=== PATIENT | male | born 1960 | race African-American/Black ===

== ENCOUNTER 2019-01-07 20:35 | Inpatient (IN) | payer OTHER ==
[~2019-01-07] VITALS: Ht 175.3 cm; Wt 96.3 kg
[~2019-01-07 20:35] MED LIST: ALTACE10 MG PO; BAYER CHEWABLE81 MG PO; CHLORTHALIDONE25 MG PO; FISH OIL 1,0001 EAC5 PO; LIPITOR 20 MG T20 M1 PO; METFORMIN HCL500 MG PO; NIACIN500 MG PO; NORCO 5-325 TA1 EACH PO; PERCOCET PO; SERTRALINE HCL25 M1 PO; TOPROL XL50 MG PO
[2019-01-07 22:44] VITALS: BP 141/77
[2019-01-07] MEDS ORDERED: METFORMIN HCL500 M3 PO (23:25)
[2019-01-07] MEDS ORDERED: CLONIDINE PO (23:32)
[2019-01-07] MEDS ORDERED: PLAVIX 75 MG TA75 MG PO (23:34)
[2019-01-07] MEDS ORDERED: HYDRALAZINE HC100 MG PO (23:34)
[2019-01-07] MEDS ORDERED: FUROSEMIDE 20 M20 MG PO (23:35)
[2019-01-07] MEDS ORDERED: ZESTRIL PO (23:37)
[2019-01-08] MEDS ORDERED: LANTUS SUBQ (01:50)
[2019-01-08] MEDS ORDERED: METFORMIN HCL1000 MG PO (01:50)
[2019-01-08] MEDS ORDERED: GLUCOPHAGE500 MG PO (01:50)
[2019-01-08] MEDS ORDERED: ASPIRIN EC325 M1 PO (02:01)
[2019-01-08 02:18] LABS: CHOLESTEROL 124 mg/dL (<200); HDL CHOLESTEROL 41 mg/dL (>40); LDL CHOLESTEROL 73 mg/dL (<100); TRIGLYCERIDE 53 mg/dL (<150); TROPONIN-I <0.06 ng/mL (<0.06); VLDL 11 mg/dL (<40)
[2019-01-08 02:20] LABS: SERUM ASSESSMENT Clear
[2019-01-08 05:58] VITALS: BP 141/70
[2019-01-08 08:15] VITALS: BP 143/86
[2019-01-08 11:52] VITALS: BP 144/77
--- NOTE | 2019-01-08 13:23 | EKG ---
[place] [address] [facility] [place] [address] ELECTROCARDIOGRAM REPORT Name: JESSICA RASMUSSEN Room #: 218-P ADM IN M.R.#: [id number] Admission: 01/07/19 Attend Phys: Gerber Ragland MD Discharge: Date of : 60 Report #: [id number] THIS REPORT FOR: //name// [facility] [place] [place] Test Date: 2019-01-08 Test Time: 07:05:22 Pat Name: JESSICA RASMUSSEN Department: Room: 218 P Gender: M Hospital Account Manager: Carrie BLUM : 1960 Requested By: Sheila Cuello Order Number: [id number] MD: Gideon Ayala Measurements Intervals [place] Rate: 49 P: -16 NV: 182 QRS: -26 QRSD: 96 T: -90 QT: 429 QTc: 388 Interpretive Statements Sinus bradycardia Inferior infarct, old Abnrm T, consider ischemia, anterolateral lds Compared to ECG 06/10/2013 14:52:09 Heart rate has slowed Change in the anterior T-wave abnormality Electronically Signed On 01-08-2019 13:23:04 RETAIL BAKERY MANAGER by Gideon Ayala [email or web address] <ELECTRONICALLY SIGNED> By: Gideon Ayala MD, [facility] 01/08/19 1323 0705 0705 Gideon Ayala MD, [facility] /EPI
[2019-01-08 16:30] VITALS: BP 160/90
--- NOTE | 2019-01-08 17:18 | NUR ---
RECEIVED PT'S CARE AROUND 0725; PT. ON BED; A0X4; DURING ASSESSMENT NO C/O PAIN; VS WNL; HR ON THE 40s-50s ON THE MONITOR; NO C/O HEADACHE OR DIZZINESS; FLUIDS STARTED PER EMAR; AM MEDICATION GIVEN; SBP ABOVE 100 THROUGH THE DAY; HR ON THE 40s; THROUGH THE DAY INSULIN NOT GIVEN; IV CHANGED PER PROTOCOL; REQUESTED ANTI-ANXIETY MEDICATION; PHYSICIAN NOTIFIED; ORDERS RECEIVED; MONITORING; ASSESSMENT CHARGED; FOLLOWING POC; WILL PASS ON REPORT;
[2019-01-08 20:26] VITALS: BP 181/79
[2019-01-08 21:17] VITALS: BP 163/80
[2019-01-09 00:02] VITALS: BP 128/65
[2019-01-09 03:05] LABS: GLYCOHEMOGLOBIN (HGB A1C) 6.9 % (4.8-5.6)
[2019-01-09 04:51] LABS: HEMOGLOBIN 14.7 gm/dL (14.0-18.0); MCH 26.8 pg (26.0-34.0); MCHC 32.6 g/dL (28.0-37.0); MCV 82.2 fL (80.0-100.0); RBC 5.47 mil/uL (4.50-6.00); WBC 6.4 thou/uL (4.0-11.0)
[2019-01-09 05:04] LABS: CALCIUM 8.9 mg/dL (8.5-10.1); CREATININE 1.2 mg/dL (0.7-1.3); POTASSIUM 3.7 mmol/L (3.5-5.1)
[2019-01-09 05:15] VITALS: BP 132/70
--- NOTE | 2019-01-09 05:48 | NUR ---
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
[2019-01-09 06:26] VITALS: BP 115/66
[2019-01-09 10:15] VITALS: BP 157/76
--- NOTE | 2019-01-09 14:06 | 2DMMODE ---
[place] [address] 2 D/M-MODE ECHOCARDIOGRAM Name: JESSICA RASMUSSEN Room #: 218-P [facility] IN ..#: [id number] Admission: 01/07/19 Attend Phys: Song Mason MD Discharge: Date of : 60 Report #: [id number] THIS REPORT FOR: //name// APPROVED REPORT Study performed: 01/09/2019 13:25:19 EXAM: Comprehensive 2D, Doppler, and color-flow Echocardiogram Patient Location: Echo lab Room #: 218 Status: routine BSA: 2.11 HR: 55 bpm BP: 155/66 mmHg Rhythm: NSR Other Information Study Quality: Good Indications CAD Hypertension/HDD CABGx 6, Hx CVA 2D Dimensions RVDd: 41.24 mm IVSd: 13.37 (7-11mm) LVOT Diam: 22.07 (18-24mm) LVDd: 46.80 mm PWd: 13.75 (7-11mm) Ascending Ao: 29.01 (22-36mm) LVDs: 30.93 (25-40mm) Aortic Root: 34.76 mm IVC: 16.00 mm Volumes Left Atrial Volume (Systole) Single Plane 4CH: 45.46 mL Single Plane 2CH: 62.07 mL LA ESV Index: 27.00 mL/m2 Aortic Valve AoV Peak Miguel.: 1.30 m/s AO Peak Gr.: 6.74 mmHg LVOT Max P.47 mmHg LVOT Max V: 1.17 m/s FILIBERTO Vmax: 3.44 cm2 Mitral Valve E/A Ratio: 1.[address] [place] [address] 2 D/M-MODE ECHOCARDIOGRAM Name: GRADYJESSICA D Room #: 218-P [facility] IN [facility]#: [id number] Admission: 01/07/19 Attend Phys: Song Mason MD Discharge: Date of : 60 Report #: [id number] MV Decel. Time: 232.22 ms MV E Max Miguel.: 0.94 m/s MV A Miguel.: 0.74 m/s MV PHT: 67.34 ms IVRT: 72.66 ms Pulmonary Valve PV Peak Miguel.: 1.20 m/s PV Peak Gr.: 5.73 mmHg Pulmonary Vein P Vein S: 0.57 m/s P Vein A: 0.29 m/s P Vein D: 0.81 m/s P Vein A Dur.: 147.6 msec P Vein S/D Ratio: 0.70 Tricuspid Valve RAP Estimate: 5.00 mmHg Left Ventricle The left ventricle is normal size. There is normal LV segmental wall motion. Mild concentric left ventricular hypertrophy. The left ventricular systolic function is normal. The left ventricular ejection fraction is within the normal range. LVEF is 70%. The left ventricular diastolic function is normal. Right Ventricle Right ventricle is at the upper limits of normal. The right ventricular systolic function is normal. Atria The left atrium size is normal. The right atrium size is normal. Aortic Valve The aortic valve is normal in structure. No aortic regurgitation is present. There is no aortic valvular stenosis. Mitral Valve The mitral valve is normal in structure. Trace mitral regurgitation. No evidence of mitral valve stenosis. Tricuspid Valve The tricuspid valve is normal in structure. Trace tricuspid regurgitation. Unable to assess PA pressure. Pulmonic Valve The pulmonary valve is normal in structure. Mild pulmonic [address] [place] [address] 2 D/M-MODE ECHOCARDIOGRAM Name: JESSICA RASMUSSEN Room #: 218-P [facility] IN ..#: [id number] Admission: 01/07/19 Attend Phys: Song Mason MD Discharge: Date of : 60 Report #: [id number] regurgitation. Great Vessels The aortic root is normal in size. IVC is normal in size and collapses >50% with inspiration. Pericardium There is no pericardial effusion. <Conclusion> The left ventricle is normal size. LVEF is 70%. The left atrium size is normal. The aortic valve is normal in structure. The mitral valve is normal in structure. Trace mitral regurgitation. The tricuspid valve is normal in structure. Trace tricuspid regurgitation. Unable to assess PA pressure. The pulmonary valve is normal in structure. Mild pulmonic regurgitation. There is no pericardial effusion. <ELECTRONICALLY SIGNED> By: Minh Corea MD 01/09/19 1405 140 140 Minh Corea MD /INF
--- NOTE | 2019-01-09 16:19 | NUR ---
FAXED FACE SHEET TO [employer] TO HELP WITH MEDICAID APPLICATION RECEIVED CONFIRMATION.
--- NOTE | 2019-01-09 17:21 | NUR ---
met with patient and at bedside. 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 patient has no health isurance. has a PCP in [address] [place], Patient has no health insurance. Reviewed [facility] process. patient rec medications through [facility] and [facility]. His Clonadina patch is $100 and metoforin $35. he reoports he is running out of his insulin lantus that he had when he was employed. Patient reports although [facility] helpful still a burden for medication payments.
[2019-01-09 19:31] VITALS: BP 169/78
--- NOTE | 2019-01-09 20:20 | NUR ---
RECEIVED PT'S CARE AROUND 0710; PT. RESTING WITH EYES CLOSED; REGULAR CHEST RISING ASSESSED; STRESS TEST ORDERS; HOLD BP MEDICATION; NPO; PT. NOTIFIED; ST. UNDERSTANDING; SBP BELOW 160; AM MEDICATION GIVEN; NO C/O PAIN; GO FOR PROCEDURE AROUND 1200; BACK TO THE FLOOR AROUND 1400; SBP ELEVATED; AM BP MEDICATION GIVEN; CHECK CHARTING; NO C/O PAIN; NO ABLE TO CHECK SUGAR DURING THE EVENING DUE TO PT. HAD DINNER; EDUCATED ABOUT CALLING WHEN BEFORE EATING; ST. UNDERSTADING; ASSESSMENT CHARGED; FOLLOWING POC; PASSED ON REPORT;
[2019-01-10] VITALS (24 sets, daily range): BP systolic 124–169; BP diastolic 58–99
--- NOTE | 2019-01-10 07:05 | NUR ---
ASSESSMENT DOCUMENTED.PT BEEN RESTING IN NO ACUTE DISTRESS.A/OX4.VSS.BLOOD PRESSURE BEEN CONTROLLED.PT HAVING ANXIETY THAT IS GETTING CONTROLLED WITH ANTIANXIETY.ON NOCTURNAL DESAT STUDY OVER THE NOC.PT WAS ABLE TO SLEEP MOST OF THE NOC.PT ANTICIPATING DISCHARGE TO HOME TODAY.WILL CONT TO MONITOR PER POC.
[2019-01-10] MEDS ORDERED: ACCUPRIL40 MG PO ×2 (14:26→15:43)
[2019-01-10] MEDS ORDERED: FELODIPINE 5 MG5 M1 PO ×2 (14:26→15:42)
[2019-01-10] MEDS ORDERED: ESCITALOPRAM OX10 MG PO ×2 (14:26→15:42)
[2019-01-10] MEDS ORDERED: HYDRALAZINE 5050 MG PO ×2 (14:26→15:42)
[2019-01-10] MEDS ORDERED: METOPROLOL SUCC25 M1 PO ×2 (14:26→15:42)
--- NOTE | 2019-01-10 15:35 | NUR ---
ASSUMED CARE 0700. ALERTX4, DENIES PAIN, ELEVATED BP MANAGED WITH MEDS, COIN COLLECTOR TODAY WITHOUT INTERVENTIONS, DC HOME WITH SELF CARE. 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 REVEIWED NEW MEDICATIONS, HEART MONITOR AND IV REMOVED. CM FOLLOWED UP TO HAVE NEW PRESCRIPTIONS FILLED PRIOR TO LEAVING.
--- NOTE | 2019-01-10 15:36 | CATHLAB ---
[facility] [address] [place] [address] INVASIVE PROCEDURE REPORT Name: JESSICA RASMUSSEN Room #: 218-P ADM IN ..#: [id number] Admission: 01/07/19 Attend Phys: Song Mason MD Discharge: Date of : 60 Report #: [id number] THIS REPORT FOR: //name// APPROVED REPORT Study performed: 01/10/2019 08:49:23 Patient Details Patient Status: In-Patient Room #: 218 The patient is a 58 year-old male Event Personnel Toribio Li Family Protection Specialist, Noy Dickens Monitor, Pino Schofield RTR Monitor, lEizabeth Mcknight RT(R)() Jorje, Britney Loredo RN, Elidia Harris RN last putter away Performed Art Access - R femoral artery* Left Heart Cath Coronaries, Bypass Grafts [id number] LHCCORCABG 86607 Initial Mod Sed Same Phys/QHP Gr5y [id number] 03536 Mod Sed Same Phys/QHP Ea 652804 Hemostasis with Manual pressure Indication Dyspnea, Positive stress test Risk Factors Cerebrovascular Disease, Hypercholesterolemia, Coronary Artery DiseaseHypertension, Diabetes Previous Procedures/Diagnoses Previous CABG Procedure Narrative The Right Groin^ was infiltrated with 1% Lidocaine subcutaneous anesthesia. A PINNACLE 4FR Sheath #[id number] sheath was inserted into the RFA^. Coronary angiography was performed using coronary diagnostic catheters. The right coronary system was accessed and visualized with a JR4 catheter. The left coronary system was accessed and visualized with a JL4 catheter. The left ventricle was accessed and visualized with a ANGLED PIGTAIL catheter. Hemostasis was obtained with manual pressure following sheath removal without any complications. The patient tolerated the procedure well and there were no complications associated with the procedure. There was no hematoma. [facility] [address] [place] [address] INVASIVE PROCEDURE REPORT Name: JESSICA RASMUSSEN Room #: 218-P [facility] IN [facility]#: [id number] Admission: 01/07/19 Attend Phys: Song Mason MD Discharge: Date of : 60 Report #: [id number] Intraoperative Conscious Sedation Sedation start time: 8:57 Case end Time: 9:36 Fentanyl 50 mcg Versed 1 mg Fluoro Time: 12.00 minutes Dose: DAP 92820.00 cGycm2 2784 mGy Contrast Type and Amount: Omnipaque 95 ml Coronary Angiography The patient's coronary anatomy is right dominant. [place] Artery Percent Stenosis Left Main: 90 % Prox LAD: 90 % Mid/Distal LAD: % Circumflex: 90 % RCA: 100 % Ramus: % Grafts (Complete if Previous CABG=Yes: Percent Stenosis) Diagnostic Cath LAD There is a patent CAPONE graft with an end to side anastomosis to the mid LAD. After the anastomosis, there is both retrograde and antegrade blood flow in the muscogee LAD. Circumflex There is a patent sequential saphenous vein graft with a aljt-fs-ddnp anastomosis to the first diagonal artery, vnsr-ge-sorw anastomosis to OM1 and an end-to-side anastomosis to OM 2. Right Coronary There is a patent saphenous vein graft with an end-to-side anastomosis to the PDA. After the anastomosis, there is retrograde blood flow, filling the distal RCA and 2 RPL branches. Left Ventriculography Left Ventriculography was not performed. Ejection Fraction was >55% based off patient's Nuclear Cardiac Stress Test. An LVEDP was measured and there is no gradient across the outflow tract. Hemodynamics The aortic pressure is 154/80 mmHg with a mean of 106 mmHg. The left ventricular pressure is 153/12 mmHg with a mean of mmHg. The left ventricular end diastolic pressure is 25 mmHg. Conclusion 1. Patent CAPONE graft to the LAD. 2. Patent sequential SVG to D1, OM1 and OM 2. 3. Patent SVG to PDA, with retrograde filling of the distal RCA and 2 RPL arteries. [facility] [address] [place] [address] INVASIVE PROCEDURE REPORT Name: JESSICA RASMUSSEN Room #: 218-P [facility] IN .R.#: [id number] Admission: 01/07/19 Attend Phys: Song Mason MD Discharge: Date of : 60 Report #: [id number] 4. Normal LV systolic function. 5. Recommend aggressive risk factor management. <ELECTRONICALLY SIGNED> By: Toribio Li MD 01/10/19 1535 1535 1535 Toribio Li MD /INF
--- NOTE | 2019-01-10 16:57 | NUR ---
Patient to ct home. Vouched medications in amount of $50.98. Gave patient phone number to [facility] as they have not met with sales training representative at this time.
== END 2019-01-10 16:26 | disposition home or self-care (01) | DRG 287 ==
LOC: 2N 20:35
PROVIDERS: Nurse Practitioner Acute Care; ADMIT Hospitalist
PROC: B2111ZZ Fluoroscopy of Multiple Coronary Arteries using Low Osmolar Contrast (ICD-10-PCS; principal; 2019-01-10)
PROC: B2181ZZ Fluoroscopy of Left Internal Mammary Bypass Graft using Low Osmolar Contrast (ICD-10-PCS; principal; 2019-01-10)
PROC: 4A023N7 Measurement of Cardiac Sampling and Pressure, Left Heart, Percutaneous Approach (ICD-10-PCS; principal; 2019-01-10)
PROC: B2131ZZ Fluoroscopy of Multiple Coronary Artery Bypass Grafts using Low Osmolar Contrast (ICD-10-PCS; principal; 2019-01-10)
DX: I16.0 Hypertensive urgency (principal); I69.354 Hemiplegia and hemiparesis following cerebral infarction affecting left non-dominant side; M62.82 Rhabdomyolysis; I25.10 Atherosclerotic heart disease of native coronary artery without angina pectoris; I10 Essential (primary) hypertension; E78.5 Hyperlipidemia, unspecified; E11.9 Type 2 diabetes mellitus without complications; F41.1 Generalized anxiety disorder; Z95.1 Presence of aortocoronary bypass graft; I25.2 Old myocardial infarction; Z79.4 Long term (current) use of insulin; Z87.891 Personal history of nicotine dependence; Z82.49 Family history of ischemic heart disease and other diseases of the circulatory system; Z83.3 Family history of diabetes mellitus; Z80.9 Family history of malignant neoplasm, unspecified
CPT/HCPCS: 10081